=== PATIENT | female | born 1995 | race Caucasian/White ===

== ENCOUNTER 2017-01-28 11:25 | Emergency (ER) | payer MEDICAID ==
[~2017-01-28] VITALS: Ht 149.9 cm; Wt 67.3 kg
[~2017-01-28 11:25] MED LIST: ALPR0.25 PO; CHOL500014 PO; ESCI5TAB7 PO; HYDR-3240 PO; QUET25TA5 PO
[2017-01-28 11:38] VITALS: BP 123/86
[2017-01-28] MEDS ORDERED: ACETAMINOPHEN 325 MG TABLET PO ONE (13:00)
[2017-01-28] MEDS ORDERED: ACETAMINOPHEN 325 MG TABLET ONE (13:07)
== END 2017-01-28 13:27 | disposition home or self-care (01) ==
LOC: ED 13:10
DX: S60.221A Contusion of right hand, initial encounter (principal); E55.9 Vitamin D deficiency, unspecified; F31.9 Bipolar disorder, unspecified; W22.01XA Walked into wall, initial encounter; Y93.89 Activity, other specified; Y99.8 Other external cause status; Y92.89 Other specified places as the place of occurrence of the external cause
CPT/HCPCS: 29125

== ENCOUNTER 2017-02-27 16:07 | Emergency (ER) | payer MEDICAID ==
[~2017-02-27] VITALS: Ht 152.4 cm; Wt 68.5 kg
[2017-02-27 16:13] VITALS: BP 125/87
[2017-02-27] MEDS ORDERED: LORazepam 2 MG/ML, 1ML IVPush ONE (16:30)
[2017-02-27] MEDS ORDERED: SODIUM CHLORIDE 0.9% 1,000ML IVBOLUS ONE (16:30)
[2017-02-27] MEDS ORDERED: SODIUM CHLORIDE FLUSH 10ML SYR IVF ONE (16:30)
[2017-02-27] MEDS ORDERED: ASPIRIN 81 MG TABLET CHEW PO ONE (16:30)
[2017-02-27 17:12] LABS: BLOOD UREA NITROGEN 10 mg/dL (7-18)
[2017-02-27 17:17] LABS: IS PT STATUS REG ER OR PRE ER? YES
== END 2017-02-27 18:05 | disposition home or self-care (01) ==
LOC: ED 17:50
DX: R00.2 Palpitations (principal); F41.1 Generalized anxiety disorder; F31.9 Bipolar disorder, unspecified
CPT/HCPCS: 36415; 71020; 80048; 82040; 84436; 84443; 84484; 84703; 85025; 93005; 99285

== ENCOUNTER 2019-05-21 09:39 | Emergency (ER) | payer MEDICAID, OTHER ==
[~2019-05-21] VITALS: Ht 152.4 cm; Wt 78.0 kg
[2019-05-21 09:43] VITALS: BP 109/71
== END 2019-05-21 10:54 | disposition home or self-care (01) ==
LOC: ED 10:51
DX: S93.492A Sprain of other ligament of left ankle, initial encounter (principal); S93.602A Unspecified sprain of left foot, initial encounter; F31.9 Bipolar disorder, unspecified; X50.1XXA Overexertion from prolonged static or awkward postures, initial encounter; Y93.89 Activity, other specified; Y92.89 Other specified places as the place of occurrence of the external cause; Y99.8 Other external cause status
CPT/HCPCS: 99283